=== PATIENT | female | born 1975 | race Caucasian/White ===

== ENCOUNTER 2024-03-04 20:32 | Emergency (ER) | payer OTHER, SELFPAY ==
[2024-03-04 20:42] VITALS: BP 143/92; PULSE 70; RESP 18; TEMP 36.2; O2SAT 98; BMI 37.8
--- NOTE | 2024-03-04 21:28 | ED.GENADULT ---
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 She says she immediately jumped in the shower, closed on all, and wash out her eye. She notes burning and irritation of the eye, vision seems somewhat blurred. The left eye is unaffected. She does not wear contact lenses. Related Data Home Medications ?Medication ?Instructions ?Recorded ?Confirmed hydrochlorothiazide 25 mg tablet 25 mg PO DAILY 03/04/24 03/04/24 lisinopril 5 mg tablet 5 mg PO DAILY 03/04/24 03/04/24 rosuvastatin 5 mg tablet 5 mg PO DAILY 03/04/24 03/04/24 Allergies Allergy/AdvReac Type Severity Reaction Status Date / Time Penicillins Allergy Unknown Verified 03/04/24 20:47 Sulfa (Sulfonamide Allergy Unknown Verified 03/04/24 20:47 Antibiotics) Review of Systems Status of ROS: Reports: 6 or more systems reviewed and unremarkable except as noted in History and below [facility] Social History Smoking Status: Never smoker Do you use any of these nicotine containing products: None Non-prescribed substance use: denies use Exam Narrative: Exam Narrative: Vital signs reviewed In general, alert, well-appearing woman. Head: Normocephalic, atraumatic. Eyes: The right eye shows little bit of edema of the lid, there is conjunctival injection and eyes watering. Left eye is normal. Skin: Warm dry well perfused. No significant erythema. Const: Vital Signs, click to edit/add: Vital Signs - 24 hr 03/04/24 20:42 Temperature 97.2 F L Pulse Rate [Left P ulse Oximeter] 70 Respiratory Rate 18 Blood Pressure [Ri ght Upper Arm] 143/92 H Pulse Oximetry 98 Oxygen Delivery Me thod Room Air Documenting provider has reviewed patient's vital signs: yes Course Course ED Course: Symptoms are improved with placement of tetracaine drops. According to poison Control contents of the pot are and irritant but not highly acidic or basic, no significant injury to the eye would be anticipated. Recommendations were to flush the eye, examine for corneal abrasion. With fluorescein and a Wood's lamp, no large abrasion is seen. We irrigated her eye here with a Andrew lens and 500 mL of saline. She is feeling much improved. Discharge home, for significant eye pain, worsening visual difficulties, photophobia etcetera, return or see eye clinic. Vital Signs Vital signs: Initial Vital Signs Temperature 97.2 F L 03/04/24 20:42 Temperature Source Temporal Artery Scan 03/04/24 20:42 Pulse Rate 70 03/04/24 20:42 Pulse Rhythm Regular 03/04/24 20:42 Respiratory Rate 18 03/04/24 20:42 Blood Pressure 143/92 H 03/04/24 20:42 Blood Pressure Mean 109 H 03/04/24 20:42 Blood Pressure Position Sitting 03/04/24 20:42 Pulse Oximetry 98 03/04/24 20:42 Oxygen Delivery Method Room Air 03/04/24 20:42 Vital Signs Temperature 97.2 F L 03/04/24 20:42 Pulse Rate 70 03/04/24 20:42 Respiratory Rate 18 03/04/24 20:42 Blood Pressure 143/92 H 03/04/24 20:42 Pulse Oximetry 98 03/04/24 20:42 Oxygen Delivery Method Room Air 03/04/24 20:42 Temperature 97.2 F L 03/04/24 20:42 Pulse Rate 70 03/04/24 20:42 Respiratory Rate 18 03/04/24 20:42 Blood Pressure 143/92 H 03/04/24 20:42 Pulse Oximetry 98 03/04/24 20:42 Oxygen Delivery Method Room Air 03/04/24 20:42 Discharge Plan Discharge Clinical Impression: Chemical exposure of eye Patient Disposition: Home, Self-Care Condition: Improved Instructions: Chemical Eye [place] (ED), Body Substance Exposure (ED) Additional Instructions: You can use lubricant eyedrops or ibuprofen if needed for irritation. If you feel your vision is not improving, if you develop significant eye pain or light sensitivity, you should be seen here or at your Eye Clinic. Prescriptions: No Action lisinopril 5 mg tablet 5 mg PO DAILY hydrochlorothiazide 25 mg tablet 25 mg PO DAILY rosuvastatin 5 mg tablet 5 mg PO DAILY Follow Up/Referrals: Provider,Not a Local [Primary Care Provider] - Stand Alone Forms: [facility] Info Instructions
== END 2024-03-04 22:14 | disposition home or self-care (01) ==
LOC: ED 21:45 → MEDSURG 22:00
PROVIDERS: Emergency Provider Emergency Medicine
DX: H10.211 Acute toxic conjunctivitis, right eye (principal)
CPT/HCPCS: 99283; 99284; A9270